=== PATIENT | male | born 1995 | race Caucasian/White ===

== ENCOUNTER 2016-05-26 07:31 | Emergency (ER) | payer BC, OTHER ==
[~2016-05-26] VITALS: Ht 185.4 cm; Wt 108.2 kg
[2016-05-26 07:37] VITALS: TEMP 36.7; Ht 185.4 cm; Wt 108.2 kg
[2016-05-26] MEDS ORDERED: KETOROLAC TROMETHAMINE 60 MG/2 ML VIAL IM STA (08:04)
--- NOTE | 2016-05-26 08:49 | EMERGENCY ROOM VISIT NOTE ---
History Report prepared by Bony: Iliana Gibbs Under the Supervision of: Dr. Johnny Travis D.O. First contact with patient: 07:39 Chief Complaint: TESTICULAR PAIN Stated Complaint: LEFT TESTICULAR PAIN Nursing Triage Summary: Triage Note: Pt reports left testicular pain x 2 days. pt denies any swelling and denies any injury. History of Present Illness The patient is a 20 year old male who presents to the Emergency Room with complaints of persistent left testicular pain starting 2 days ago. The pain started suddenly in the night. He was roused from his sleep from the pain. He has never experienced this pain before. The pain worsens when walking. He rates his discomfort as a 3/10 at rest and a 5/10 when walking. The pain improves with testicle elevation. He had some nausea on the first day when the symptoms started. He denies any swelling, penile discharge, headache, fever, vomiting, abdominal pain, or urinary symptoms. He is sexually active with 1 partner. He denies having sex the night before the pain started. He denies any trauma or injury. He reports that there was a cyst in his testicle 3 years ago. It has never caused him any pain. He denies any history of STDs. He is not on any medications. He denies any prior surgeries. No trauma. Source of History: patient Onset: 2 days ago Position: other (left testicle) Symptom Intensity: 3/10 at rest Timing: other (persistent) Modifying Factors (Worsening): other (walking) Modifying Factors (Relieving): other (testicle elevation) Associated Symptoms: + nausea, No abdominal pain, No fevers, No headache, No urinary symptoms, No vomiting Note: Pt denies swelling, penile discharge. Review of Systems See HPI for pertinent positives & negatives. A total of 10 systems reviewed and were otherwise negative. Past Medical & Surgical Medical Problems: (1) Depressive Disorder Nec Surgical Problems: (1) No significant past surgical history Family History FH: cancer Hypertension Social History Smoking Status: Current Some Day Smoker Alcohol Use: occasionally Drug Use: marijuana Marital Status: in relationship Housing Status: lives with significant other Occupation Status: employed Current/Historical Medications Scheduled Doxycycline Monohydrate (Monodox), 100 MG PO BID Allergies Coded Allergies: No Known Allergies (Unverified , 05/26/16) Physical Exam Vital Signs Date Time Temp Pulse Resp B/P Pulse Ox O2 Delivery O2 Flow Rate FiO2 4/11/17 09:21 55 16 123/73 98 Room Air 05/26/16 07:37 36.7 68 18 126/73 99 Room Air Physical Exam GENERAL: sitting up in bed, alert, well appearing, well nourished, no distress, non-toxic EYE EXAM: normal conjunctiva OROPHARYNX: no exudate, no erythema, lips, buccal mucosa, and tongue normal and mucous membranes are moist NECK: supple, no nuchal rigidity, no adenopathy, non-tender LUNGS: Clear to auscultation. Normal chest wall mechanics HEART: no murmurs, S1 normal and S2 normal ABDOMEN: abdomen soft, non-tender, normo-active bowel sounds, no masses, no rebound or guarding. BACK: Back is symmetrical on inspection and there is no deformity, no midline tenderness, no CVA tenderness. : Normal external genitalia, no penile discharge, no appreciable hernia, cremasteric reflex intact, tenderness to the left testicle on the superior posterior aspect. SKIN: no rashes and no bruising UPPER EXTREMITIES: upper extremities are grossly normal. LOWER EXTREMITIES: No pitting edema. NEURO EXAM: Normal sensorium, cranial nerves II-XII grossly intact, normal speech, no gross weakness of arms, no gross weakness of legs. Medical Decision & Procedures ER Provider Diagnostic Interpretation: Radiology results as stated below per my review and the radiologist's interpretation: ULTRASOUND TESTES AND SCROTUM CLINICAL HISTORY: Left testicular pain. COMPARISON STUDY: Scrotal ultrasound dated 11/24/2012. TECHNIQUE: Real-time, grayscale, and color Doppler sonography of the testes and scrotum is performed. Images are reviewed in the transverse and longitudinal planes. FINDINGS: The testes are normal in size and homogeneous in echotexture. The right testis measures 5.7 x 3.2 x 3.9 cm and the left testis measures 5.3 x 3.1 x 3.5 cm. No intratesticular mass is seen. Testicular blood flow is normal and symmetric. Normal Doppler waveforms are identified in both testes. The epididymal heads are normal in appearance. The right epididymal head measures 1.1 cm in length and the left epididymal head measures 1.1 cm in length. No varicocele or hydrocele is seen. The small left-sided tunica cyst seen on 11/24/2012 is no longer apparent. IMPRESSION: Unremarkable sonographic assessment of the testes and scrotum. Electronically signed by: Steve Watson M.D. 05/26/2016 8:59 AM Dictated Date/Time: 05/26/2016 8:57 AM Laboratory Results Test 05/26/16 08:30 Urine Color YELLOW Urine Appearance CLEAR (CLEAR) Urine pH 6.5 (4.5-7.5) Urine Specific [place] 1.024 (1.000-1.030) Urine Protein NEG (NEG) Urine Glucose (UA) NEG (NEG) Urine Ketones NEG (NEG) Urine Occult Blood NEG (NEG) Urine Nitrite NEG (NEG) Urine Bilirubin NEG (NEG) Urine Urobilinogen NEG (NEG) Urine Leukocyte Esterase NEG (NEG) Urine WBC (Auto) 0 /hpf (0-5) Urine RBC (Auto) 0-4 /hpf (0-4) Urine Hyaline Casts (Auto) 0 /lpf (0-5) Urine Epithelial Cells (Auto) 0-5 /lpf (0-5) Urine Bacteria (Auto) NEG (NEG) Laboratory results per my review. Medications Administered Medications (Trade) Dose Ordered Sig/Az Route Start Time Stop Time Status Last Admin Dose Admin Ceftriaxone Sodium (Rocephin Im) 250 mg NOW ONCE IM 05/26/16 09:30 05/26/16 09:31 DC 05/26/16 09:32 250 MG Doxycycline Hyclate (Vibramycin Cap) 100 mg NOW STAT PO 05/26/16 09:16 05/26/16 09:19 DC 05/26/16 09:31 100 MG ED Course ED COURSE: Vital signs were reviewed and showed normal vitals. The patients medical record was reviewed The above diagnostic studies were performed and reviewed. ED treatments and interventions as stated above. 0803: The patient was evaluated in room A12B. A complete history and physical examination was performed. 0916: Vibramycin Cap 100 mg PO. 0925: Upon reevaluation, the patient is resting comfortably.I discussed my findings with the patient and he understands and agrees with the treatment plan. Based on the patients age, coexisting illnesses, exam and lab findings the decision to treat as an outpatient was made. The patient remained stable while under my care. The patient appeared well at the time of discharge. 0930: Rocephin Im 250 mg IM. Medical Decision Differential diagnosis: Etiologies such as torsion, mass, infection, hernia, hydrocele, epididymitis, trauma, intra-abdominal process, as well as others were entertained. Patient is a 20-year-old male who presents the ER for left testicular pain which has been present for the past 2 days. He notes that it is worse on the superior aspect of the testicle. He denies any fevers. Pain is improved with elevation of the testicle. On exam he is acutely tender in the posterior superior aspect of the testicle suggesting epididymitis. There is no signs of torsion and the cremasterics reflex is intact bilaterally. Testicular ultrasound was performed and was unremarkable. UA was negative. Based on his exam he was treated for epididymitis with doxycycline and Rocephin. He is instructed not to have any kind of sexual intercourse for the next 2 weeks. Discussed with Pt concerning signs and symptoms to watch out for. Pt was instructed to follow up with their PCP and discussed with the patient their option to return to the ED at anytime for persistent or worsening symptoms. The appropriate anticipatory guidance and out-patient management, including indications for return to the emergency department, were explained at length to the patient and understood. Impression Primary Impression: Epididymitis Scribe Attestation The scribe's documentation has been prepared under my direction and personally reviewed by me in its entirety. I confirm that the note above accurately reflects all work, treatment, procedures, and medical decision making performed by me. Departure Information Dispostion Home / Self-Care Prescriptions Doxycycline Monohydrate (Monodox) 100 Mg Cap 100 MG PO BID for 10 Days, #20 CAP Prov: Dank Maurer .MD 05/26/16 Referrals No Doctor, Assigned (PCP) Forms HOME CARE DOCUMENTATION FORM, IMPORTANT VISIT INFORMATION, WORK / SCHOOL INSTRUCTIONS Patient Instructions ED Epididymitis, My [facility] Additional Instructions Please follow up with your primary care doctor with in the next 24 hours. Any worsening of your symptoms, please return to the ED immediately. This includes fevers greater than 100.4, worsening pain, swelling of your testicle, passing out, unable to urinate, or any other concerning signs or symptoms from your standpoint. Please take the antibiotics as prescribed. Please do not drink alcohol in combination with this medication as it can upset your stomach. Please try to eat prior to taking this medication. Please refrain from any kind of sexual intercourse for the next 2 weeks.
[2016-05-26 08:57] LABS: URINE APPEARANCE CLEAR (CLEAR); URINE BILIRUBIN NEG (NEG); URINE COLOR YELLOW; URINE EPITHELIAL CELL AUTO 0-5 /lpf (0-5); URINE NITRITE NEG (NEG); URINE PH 6.5 (4.5-7.5); URINE SPECIFIC GRAVITY 1.024 (1.000-1.030); UROBILINOGEN NEG (NEG); ZZUR CULT IF INDIC CLEAN CATCH NO
[2016-05-26 08:58] LABS: MANUAL MICROSCOPIC REQUIRED? NO; REVIEW REQ? NO
--- NOTE | 2016-05-26 09:01 | DIAGNOSTIC IMAGING REPORT ---
ULTRASOUND TESTES AND SCROTUM CLINICAL HISTORY: Left testicular pain. COMPARISON STUDY: Scrotal ultrasound dated 11/24/2012. TECHNIQUE: Real-time, grayscale, and color Doppler sonography of the testes and scrotum is performed. Images are reviewed in the transverse and longitudinal planes. FINDINGS: The testes are normal in size and homogeneous in echotexture. The right testis measures 5.7 x 3.2 x 3.9 cm and the left testis measures 5.3 x 3.1 x 3.5 cm. No intratesticular mass is seen. Testicular blood flow is normal and symmetric. Normal Doppler waveforms are identified in both testes. The epididymal heads are normal in appearance. The right epididymal head measures 1.1 cm in length and the left epididymal head measures 1.1 cm in length. No varicocele or hydrocele is seen. The small left-sided tunica cyst seen on 11/24/2012 is no longer apparent. IMPRESSION: Unremarkable sonographic assessment of the testes and scrotum. Electronically signed by: Steve Watson M.D. 05/26/2016 8:59 AM Dictated Date/Time: 05/26/2016 8:57 AM
--- NOTE | 2016-05-26 09:09 | EMERGENCY ROOM VISIT NOTE ---
History First contact with patient: 07:39 Chief Complaint: TESTICULAR PAIN Stated Complaint: LEFT TESTICULAR PAIN Nursing Triage Summary: Triage Note: Pt reports left testicular pain x 2 days. pt denies any swelling and denies any injury. History of Present Illness The patient is a 20 year old male who presents to the Emergency Room with complaints of unilateral Left sided testicular pain. 2 days prior to arrival patient reports sudden onset, constant left testicular pain radiating to the Left groin. Pain is worse with walking/standing. 3/10 intensity when sitting , 5/10 with walking, . He also reports hx of nausea ( now resolved. He denies associated injury. He denies bruising, swelling. No fevers/chills, penile discharge, urinary urgency, dysuria, frequency, . Patient also reports hx of Left testicular cyst diagnosed 11/2012. Patient had noticed a non-painful testicular lump before it was diagnosed. Review of Systems See HPI for pertinent positives & negatives. A total of 10 systems reviewed and were otherwise negative. Past Medical/Surgical History Medical Problems: (1) Depressive Disorder Nec Surgical Problems: (1) No significant past surgical history Family History FH: cancer Hypertension Social History Smoking Status: Current Some Day Smoker Alcohol Use: occasionally Drug Use: marijuana Housing Status: lives with friends Occupation Status: unemployed Current/Historical Medications Scheduled Doxycycline Monohydrate (Monodox), 100 MG PO BID Allergies Coded Allergies: No Known Allergies (Unverified , 05/26/16) Physical Exam Vital Signs Date Time Temp Pulse Resp B/P Pulse Ox O2 Delivery O2 Flow Rate FiO2 05/26/16 09:21 55 16 123/73 98 Room Air 05/26/16 07:37 36.7 68 18 126/73 99 Room Air Physical Exam GENERAL: alert, well appearing, well nourished, no distress, non-toxic EYE EXAM: normal conjunctiva, PERRL and EOM's grossly intact OROPHARYNX: no exudate, no erythema, lips, buccal mucosa, and tongue normal and mucous membranes are moist NECK: supple, no nuchal rigidity, no adenopathy, non-tender LUNGS: Clear to auscultation. Normal chest wall mechanics HEART: no murmurs, S1 normal and S2 normal ABDOMEN: abdomen soft, non-tender, normo-active bowel sounds, no masses, no rebound or guarding. BACK: Back is symmetrical on inspection and there is no deformity, no midline tenderness, no CVA tenderness. SKIN: no rashes and no bruising UPPER EXTREMITIES: upper extremities are grossly normal. LOWER EXTREMITIES: No pitting edema. Testes: Left Testicle: tender at superior posterior aspect , no edema, no hematoma, no hernia present. NEURO EXAM: Normal sensorium, cranial nerves II-XII grossly intact, normal speech, no gross weakness of arms, no gross weakness of legs. Gross sensation intact. Medical Decision & Procedures ER Provider Diagnostic Interpretation: ULTRASOUND TESTES AND SCROTUM CLINICAL HISTORY: Left testicular pain. COMPARISON STUDY: Scrotal ultrasound dated 11/24/2012. TECHNIQUE: Real-time, grayscale, and color Doppler sonography of the testes and scrotum is performed. Images are reviewed in the transverse and longitudinal planes. FINDINGS: The testes are normal in size and homogeneous in echotexture. The right testis measures 5.7 x 3.2 x 3.9 cm and the left testis measures 5.3 x 3.1 x 3.5 cm. No intratesticular mass is seen. Testicular blood flow is normal and symmetric. Normal Doppler waveforms are identified in both testes. The epididymal heads are normal in appearance. The right epididymal head measures 1.1 cm in length and the left epididymal head measures 1.1 cm in length. No varicocele or hydrocele is seen. The small left-sided tunica cyst seen on 11/24/2012 is no longer apparent. IMPRESSION: Unremarkable sonographic assessment of the testes and scrotum. Laboratory Results Test 05/26/16 08:30 Urine Color YELLOW Urine Appearance CLEAR (CLEAR) Urine pH 6.5 (4.5-7.5) Urine Specific [place] 1.024 (1.000-1.030) Urine Protein NEG (NEG) Urine Glucose (UA) NEG (NEG) Urine Ketones NEG (NEG) Urine Occult Blood NEG (NEG) Urine Nitrite NEG (NEG) Urine Bilirubin NEG (NEG) Urine Urobilinogen NEG (NEG) Urine Leukocyte Esterase NEG (NEG) Urine WBC (Auto) 0 /hpf (0-5) Urine RBC (Auto) 0-4 /hpf (0-4) Urine Hyaline Casts (Auto) 0 /lpf (0-5) Urine Epithelial Cells (Auto) 0-5 /lpf (0-5) Urine Bacteria (Auto) NEG (NEG) Medications Administered Medications (Trade) Dose Ordered Sig/Az Route Start Time Stop Time Status Last Admin Dose Admin Ceftriaxone Sodium (Rocephin Im) 250 mg NOW ONCE IM 05/26/16 09:30 05/26/16 09:31 DC 05/26/16 09:32 250 MG Doxycycline Hyclate (Vibramycin Cap) 100 mg NOW STAT PO 05/26/16 09:16 05/26/16 09:19 DC 05/26/16 09:31 100 MG Medical Decision 20 yo M p/w acute Left Testicular pain x 2 days ddx: epididymitis, vs. torsion vs orchitis vs, vasculitis were considered Testicular U/S: unremarkable Urinalysis: unremarkable. Patient's presentation is most likely due to Epididymitis evidenced by exam findings and normal testicular u/s effectively ruling out Torsion as a cause. Lack of swelling and signs of infection make orchitis unlikely. Patient has no other signs of a vasculitis. -Patient refused IM Toradol - Given PO Doxycycline 100 mg - Given IM Ceftriaxone 250 mg I discussed the findings and the treatment plan with the patient. He verbalizes agreement and understanding. He was discharged home with 10 day course of Doxycycline. Impression Primary Impression: Left epididymitis Additional Impression: Left testicular pain Departure Information Dispostion Home / Self-Care Condition GOOD Prescriptions Doxycycline Monohydrate (Monodox) 100 Mg Cap 100 MG PO BID for 10 Days, #20 CAP Prov: Dank Maurer MD 05/26/16 Referrals No Doctor, Assigned (PCP) Patient Instructions My [facility] Resident Tracking Resident Involvement: Resident Care Provided Care Provided: Adult ED Problem Qualifiers
[2016-05-26] MEDS ORDERED: DOXYCYCLINE HYCLATE 100 MG CAP PO STA (09:16)
[2016-05-26 09:21] VITALS: BP 123/73; PULSE 55; O2SAT 98
[2016-05-26] MEDS ORDERED: DOXY100C76 PO (09:28)
[2016-05-26] MEDS ORDERED: CEFTRIAXONE SOD 350MG/ML 1 GM VIAL IM ONE (09:30)
== END 2016-05-26 09:39 | disposition home or self-care (01) ==
LOC: C.EDB 07:32 → C.EDA 09:39
DX: N45.1 Epididymitis (principal); Z82.49 Family history of ischemic heart disease and other diseases of the circulatory system; F17.200 Nicotine dependence, unspecified, uncomplicated; F12.90 Cannabis use, unspecified, uncomplicated

== ENCOUNTER 2016-08-26 13:56 | Emergency (ER) | payer BC ==
[~2016-08-26] VITALS: Ht 185.4 cm; Wt 102.5 kg
[2016-08-26 14:02] VITALS: TEMP 36.8; Ht 185.4 cm; Wt 102.5 kg
[2016-08-26] MEDS ORDERED: SODIUM CHLORIDE 0.9% 1000ML 1,000 ML IV STA ×2 (15:18)
[2016-08-26] MEDS ORDERED: KETOROLAC TROMETHAMINE 30 MG/ML VIAL IV STA (15:18)
[2016-08-26 15:38] LABS: BASO % 0.3 %; BASO ABS # 0.02 K/uL (0-0.2); COMPLETE YES; EOS % 3.3 %; HEMATOCRIT 46.3 % (42-52); IG% 0.4 %; LYMPH ABS # 2.03 K/uL (1.2-3.4); MEAN CELL VOLUME 87.7 fL (80-100); MEAN CORPUSCULAR HEMOGLOBIN 28.8 pg (25-34); MEAN CORPUSCULAR HGB CONC 32.8 g/dl (32-36); MEAN PLATELET VOLUME 10.7 fL (7.4-10.4); MONO % 13.7 %; NEUT % 56.3 %; PLATELET COUNT 201 K/uL (130-400); RED BLOOD COUNT 5.28 M/uL (4.7-6.1)
[2016-08-26 15:48] LABS: POINT OF CARE TROPONIN I < 0.030 ng/ml (0-0.045)
[2016-08-26 15:49] LABS: BUN/CREATININE RATIO 18.6 (10-20); CALCIUM 8.8 mg/dl (8.5-10.1); CREATININE 0.84 mg/dl (0.60-1.40)
[2016-08-26 15:51] LABS: ALB/GLOB RATIO 1.4 (0.9-2)
[2016-08-26 15:57] LABS: PARTIAL THROMBOPLASTIN RATIO 1.2; PROTHROMBIN TIME (PATIENT) 10.9 SECONDS (9.0-12.0)
--- NOTE | 2016-08-26 15:59 | DIAGNOSTIC IMAGING REPORT ---
CHEST 2 VIEWS ROUTINE CLINICAL HISTORY: RIGHT CHEST PAIN X 2 DAYS COMPARISON STUDY: No previous studies for comparison. FINDINGS: Lung volumes are normal. There is no pneumothorax or pleural effusion. There is no consolidation to suggest pneumonia. Cardiomediastinal silhouette is normal. IMPRESSION: No acute cardiopulmonary findings. Electronically signed by: David Barbour M.D. 08/26/2016 3:58 PM Dictated Date/Time: 08/26/2016 3:57 PM
[2016-08-26 16:13] LABS: CKMB/CK RATIO 0.5 (0-3.0)
[2016-08-26 17:10] LABS: URINE APPEARANCE CLEAR (CLEAR); URINE BILIRUBIN NEG (NEG); URINE COLOR YELLOW; URINE NITRITE NEG (NEG); URINE SPECIFIC GRAVITY 1.022 (1.000-1.030); UROBILINOGEN NEG (NEG)
[2016-08-26 17:13] LABS: MANUAL MICROSCOPIC REQUIRED? NO; REVIEW REQ? NO
--- NOTE | 2016-08-26 17:38 | DIAGNOSTIC IMAGING REPORT ---
ABDOMINAL ULTRASOUND, RIGHT UPPER QUADRANT HISTORY: Right upper quadrant abdominal pain. COMPARISON: None. FINDINGS: The liver is sonographically normal. The common bile duct is partially obscured but likely normal in caliber. There may be mild intrahepatic biliary ductal dilatation. This could be artifactual. The pancreas is obscured by overlying bowel gas. There is no right hydronephrosis. There are no gallstones. There is no gallbladder wall thickening. IMPRESSION: 1. No gallstones or gallbladder wall thickening. 2. Possible mild intrahepatic biliary ductal dilatation. This is probably artifactual although could be correlated with obstructive liver function tests. 3. Obscured pancreas. Electronically signed by: David Barbour M.D. 08/26/2016 5:37 PM Dictated Date/Time: 08/26/2016 5:34 PM
[2016-08-26 17:43] LABS: BENZODIAZEPINE, URINE NEG (NEG); COCAINE,URINE NEG (NEG); PHENCYCLIDINE, URINE NEG (NEG)
--- NOTE | 2016-08-26 17:58 | EMERGENCY ROOM VISIT NOTE ---
History First contact with patient: 14:51 Chief Complaint: CHEST PAIN Stated Complaint: PAIN IN RIGHT SIDE OF CHEST Nursing Triage Summary: Pt c/o right side of his chest, sharp pain, happened 2 months ago, went away after a month, 2 days ago after a concert the pain is back. Pain is constant, but when he coughs, sneezes, or bends down the pain increases. SOB with coughing. History of Present Illness Patient is an otherwise healthy 20-year-old white male who presents emergency Department accompanied by his mother for evaluation of right-sided chest pain 2 days. Patient states that the pain started while he was running at a concert 2 days ago. He describes the abrupt onset of a sharp, right lower anterior rib pain. He describes it as a stabbing sensation. He states that the pain is constant and dull, rated a 4/10, but increases when he sneezes, coughs or bends over, and becomes much more sharp. He does also note that there is an area that he can palpate on the front of his ribs/abdomen, that makes the pain wraps around to his back. He has essentially did nothing for his pain. He denies any cold or upper respiratory symptoms, cough or sputum production. He denies any direct trauma to the area, no falls, unusual activity or heavy lifting. He states that he has to catch his breath when the pain becomes severe, and he was a little bit nauseous this morning with the increased pain. He denies any palpitations. He denies any calf or leg pain or swelling. He drove to and from [place] for vacation and returned 08/13. He was also in [place] for the concert 2 days ago. He denies any personal or family history of DVT or PE. He does report an episode of symptoms similar to this about 2 months ago, he states that pain started after he was coughing, and it lasted him for about a month. He did not seek medical attention at that time. He does not smoke. He is not taking any medications presently. There is a remote family history of heart disease and early MT. Review of Systems Review of systems as per HPI. All other systems reviewed were negative. 10 systems reviewed. Past Medical/Surgical History Medical Problems: (1) Depressive Disorder Nec (2) Epididymitis (3) Laceration (4) Left epididymitis (5) Left testicular pain (6) Left testicular pain (7) Superficial punctate keratitis Surgical Problems: (1) No significant past surgical history Electronic medical records are reviewed and summarized as above/below. See Problem List. Family History FH: cancer Hypertension Social History Smoking Status: Former Smoker Alcohol Use: occasionally Drug Use: marijuana Marital Status: in relationship Housing Status: lives with significant other Occupation Status: employed Current/Historical Medications No Active Prescriptions or Reported Meds Allergies Coded Allergies: No Known Allergies (Unverified , 08/26/16) Physical Exam Vital Signs Date Time Temp Pulse Resp B/P (MAP) Pulse Ox O2 Delivery O2 Flow Rate FiO2 08/26/16 18:17 90 18 124/74 99 08/26/16 16:09 136/84 08/26/16 15:26 64 17 08/26/16 14:56 54 14 08/26/16 14:37 81 08/26/16 14:33 62 18 134/84 100 Room Air 08/26/16 14:33 134/84 08/26/16 14:06 98 Room Air 08/26/16 14:02 36.8 72 18 126/87 98 Room Air Physical Exam CONSTITUTIONAL: Patient is a well-appearing 20-year-old white male who is awake and alert and in no acute distress. EYES: Pupils equal, round, reactive to light and accommodation. EOMs intact without nystagmus. Sclera are anicteric. ENT: Tympanic membranes intact, with normal landmarks. External canals are clear. Oral and nasopharynx are clear. Mucous membranes are moist, no lesions , tongue and gums appear normal. NECK: No bruits auscultated. Supple without lymphadenopathy. No thyromegaly. No meningeal signs. Full active range of motion without discomfort. CARDIOVASCULAR: Regular rate and rhythm, with normal S1 and S2, no murmur or gallop or rub is heard. No carotid bruits auscultated. No JVD. Peripheral pulses easy to palpable. RESPIRATORY: Breath sounds equal and clear to auscultation without wheezes, rales, or rhonchi heard. Full and equal chest expansion without accessory muscle use or retractions. GI: Bowel sounds are present. Abdomen is soft nondistended, slightly tender in the right upper quadrant off of the costal margin. No organomegaly. No pulsatile masses. No guarding or rebound. MUSCULOSKELETAL: Full range of motion of extremities x 4 with good strength. No cyanosis, edema, joint tenderness or swelling. No deformity. INTEGUMENTARY: No lesions or rash, normal skin turgor. NEUROLOGICAL: Alert, oriented, and cooperative. Cranial nerves, sensation and strength grossly intact. Pupils round, equal, and react to light, EOMs are full. LYMPH: No lymphadenopathy. Medical Decision & Procedures ER Provider Diagnostic Interpretation: CHEST 2 VIEWS ROUTINE CLINICAL HISTORY: RIGHT CHEST PAIN X 2 DAYS COMPARISON STUDY: No previous studies for comparison. FINDINGS: Lung volumes are normal. There is no pneumothorax or pleural effusion. There is no consolidation to suggest pneumonia. Cardiomediastinal silhouette is normal. IMPRESSION: No acute cardiopulmonary findings. ABDOMINAL ULTRASOUND, RIGHT UPPER QUADRANT HISTORY: Right upper quadrant abdominal pain. COMPARISON: None. FINDINGS: The liver is sonographically normal. The common bile duct is partially obscured but likely normal in caliber. There may be mild intrahepatic biliary ductal dilatation. This could be artifactual. The pancreas is obscured by overlying bowel gas. There is no right hydronephrosis. There are no gallstones. There is no gallbladder wall thickening. IMPRESSION: 1. No gallstones or gallbladder wall thickening. 2. Possible mild intrahepatic biliary ductal dilatation. This is probably artifactual although could be correlated with obstructive liver function tests. 3. Obscured pancreas. Laboratory Results 08/26/16 14:40 Red Blood Count 5.28, Mean Corpuscular Volume 87.7, Mean Corpuscular Hemoglobin 28.8, Mean Corpuscular Hemoglobin Concent 32.8, Mean Platelet Volume 10.7, Neutrophils (%) (Auto) 56.3, Lymphocytes (%) (Auto) 26.0, Monocytes (%) (Auto) 13.7, Eosinophils (%) (Auto) 3.3, Basophils (%) (Auto) 0.3, Neutrophils # (Auto ) 4.39, Lymphocytes # (Auto) 2.03, Monocytes # (Auto) 1.07, Eosinophils # (Auto ) 0.26, Basophils # (Auto) 0.02 08/26/16 14:40 Test 08/26/16 00:00 08/26/16 14:40 08/26/16 15:31 Urine Color YELLOW Urine Appearance CLEAR (CLEAR) Urine pH 7.0 (4.5-7.5) Urine Specific [place] 1.022 (1.000-1.030) Urine Protein NEG (NEG) Urine Glucose (UA) NEG (NEG) Urine Ketones NEG (NEG) Urine Occult Blood NEG (NEG) Urine Nitrite NEG (NEG) Urine Bilirubin NEG (NEG) Urine Urobilinogen NEG (NEG) Urine Leukocyte Esterase NEG (NEG) Urine Opiates Screen NEG (NEG) Urine Methadone, Qualitative NEG (NEG) Urine Barbiturates NEG (NEG) Urine Phencyclidine (PCP) Level NEG (NEG) Ur Amphetamine/Methamphetamine NEG (NEG) MDMA (Ecstasy) Screen NEG (NEG) Urine Benzodiazepines Screen NEG (NEG) Urine Cocaine Metabolite NEG (NEG) Urine Marijuana (THC) POS (NEG) White Blood Count 7.80 K/uL (4.8-10.8) Red Blood Count 5.28 M/uL (4.7-6.1) Hemoglobin 15.2 g/dL (14.0-18.0) Hematocrit 46.3 % (42-52) Mean Corpuscular Volume 87.7 fL (80-100) Mean Corpuscular Hemoglobin 28.8 pg (25-34) Mean Corpuscular Hemoglobin Concent 32.8 g/dl (32-36) Platelet Count 201 K/uL (130-400) Mean Platelet Volume 10.7 fL (7.4-10.4) Neutrophils (%) (Auto) 56.3 % Lymphocytes (%) (Auto) 26.0 % Monocytes (%) (Auto) 13.7 % Eosinophils (%) (Auto) 3.3 % Basophils (%) (Auto) 0.3 % Neutrophils # (Auto) 4.39 K/uL (1.4-6.5) Lymphocytes # (Auto) 2.03 K/uL (1.2-3.4) Monocytes # (Auto) 1.07 K/uL (0.11-0.59) Eosinophils # (Auto) 0.26 K/uL (0-0.5) Basophils # (Auto) 0.02 K/uL (0-0.2) RDW Standard Deviation 40.2 fL (36.4-46.3) RDW Coefficient of Variation 12.5 % (11.5-14.5) Immature Granulocyte % (Auto) 0.4 % Immature Granulocyte # (Auto) 0.03 K/uL (0.00-0.02) Erythrocyte Sedimentation Rate 3 mm/hr (0-14) Prothrombin Time 10.9 SECONDS (9.0-12.0) Prothromb Time International Ratio 1.0 (0.9-1.1) Activated Partial Thromboplast Time 29.9 SECONDS (21.0-31.0) Partial Thromboplastin Ratio 1.2 Anion Gap 8.0 mmol/L (3-11) Est Creatinine Clear Calc Drug Dose 173.5 ml/min Estimated GFR () 144.0 Estimated GFR (Non- 124.3 BUN/Creatinine Ratio 18.6 (10-20) Calcium Level 8.8 mg/dl (8.5-10.1) Total Bilirubin 0.6 mg/dl (0.2-1) Aspartate Amino Transf (AST/SGOT) 36 U/L (15-37) Alanine Aminotransferase (ALT/SGPT) 42 U/L (12-78) Alkaline Phosphatase 56 U/L (45-117) Total Creatine Kinase 1355 U/L (39-308) Creatine Kinase MB 6.6 ng/ml (0.5-3.6) Creatine Kinase MB Ratio 0.5 (0-3.0) Total Protein 7.3 gm/dl (6.4-8.2) Albumin 4.2 gm/dl (3.4-5.0) Globulin 3.1 gm/dl (2.5-4.0) Albumin/Globulin Ratio 1.4 (0.9-2) Lipase 110 U/L (73-393) Bedside D-Dimer 77 ng/mlFEU (0-450) Bedside Troponin I < 0.030 ng/ml (0-0.045) Medications Administered Medications (Trade) Dose Ordered Sig/Az Route Start Time Stop Time Status Last Admin Dose Admin Sodium Chloride 1,000 ml @ 999 mls/hr Q1H1M STAT IV 08/26/16 15:18 08/26/16 16:18 DC 08/26/16 15:31 999 MLS/HR Sodium Chloride 1,000 ml @ 250 mls/hr Q4H STAT IV 08/26/16 15:18 08/26/16 18:51 DC 08/26/16 15:33 250 MLS/HR Ketorolac Tromethamine (Toradol Inj) 30 mg NOW STAT IV 08/26/16 15:18 08/26/16 15:20 DC 08/26/16 15:32 30 MG ECG Indication: chest pain Rate (beats per minute): 72 Rhythm: sinus with SA Findings: no acute ischemic change, no ectopy Comparison ECG Date: no prior available ED Course The patient was seen and evaluated as above. His old records are reviewed. He presents the emergency department for evaluation of right-sided chest pain. On exam he has pain both over the right inferior ribs in addition to in the right upper quadrant slightly. IV lock was initiated. Patient was hydrated with normal saline solution and medicated with Toradol 30 mg IV for pain. Laboratory studies were collected. EKG was performed and was as noted above. CBC with differential, sedimentation rate, coags, [id number] troponin and d- dimer, CMP, CK/CK-MB, lipase, urinalysis and urine tox screen were all performed. His white count was not elevated. H&H is normal. Platelets and PT/ INR are within normal limits. His sedimentation rate is not elevated. Electrolytes, renal functions and liver functions are within normal limits. Lipase is not indicative of acute pancreatitis. Troponin is negative 1 with symptoms greater than 48 hours. [id number] d-dimer was well within normal range, therefore, further workup for PE was not pursued. He did have slight, nonspecific elevation of his total CK at 1355, that this was not felt to indicate rhabdomyolysis. He did receive IV fluid hydration in the emergency department. Urinalysis was negative, urine toxicology screen was positive for marijuana. Chest x-ray was unremarkable. Right upper quadrant ultrasound did not demonstrate any gallstones or gallbladder wall thickening. There was a question of some possible mild intrahepatic biliary ductal dilatation, however liver functions do not indicate an obstructive pathology. All laboratory and diagnostic imaging studies were reviewed with attending physician, and discussed with the patient and his mother at length. He does have some reproducible tenderness to palpation, and I suggest the possibility of a musculoskeletal etiology to his symptoms.Differential diagnosis includes acute myocardial infarction, acute coronary syndrome, myocarditis, pericarditis , pericardial effusions /tamponade, esophageal perforation, pulmonary embolism , pneumonia, pneumothorax, cardiomyopathy, congestive heart failure, anemia , COPD/asthma exacerbation, musculoskeletal, anxiety, costochondritis, among others. Conservative care measures were discussed with the patient. He was encouraged to rest and avoid any strenuous activity until his symptoms improve. He was advised to follow-up with his primary care provider for further care and management, particularly if his symptoms persist. The patient was discharged to home in good condition accompanied by his mother. He rated his pain a 2/10 at discharge. Medication reconciliation: I attest that I have personally reviewed the patient' s current medication list. Medical Decision See Emergency Department course. Impression Primary Impression: Right-sided chest pain Departure Information Prescriptions No Active Prescriptions or Reported Meds Referrals Joaquim Brunson M.D. ([facility]) (PCP) Patient Instructions My [facility] Additional Instructions Ibuprofen(Motrin, Advil) may be used for fever or pain. Use 600mg every six hours as needed. Take with food. Avoid using more than 2400mg in a 24 hour period. Do not use 2400mg per day for more than three consecutive days without physician direction. Prolonged inappropriate use can lead to stomach upset or ulcers. (AND/OR) Acetaminophen(Tylenol) may be used for fever or pain. Use 1000mg every six hours as needed. Avoid using more than 3000mg in a 24 hour period. Rest and drink plenty of fluids as tolerated. Continue current medications. Avoid strenuous activities and anything that worsens your pain. Resume normal activities once your symptoms resolve. Return to the ER immediately for worsening or persistent chest pain, abdominal pain, vomiting, fevers, chest pains, difficulty breathing, worsening of your condition, or as needed. Follow up with your primary physician in 2-3 days for a recheck of your current condition.
[2016-08-26 18:17] VITALS: BP 124/74; PULSE 90; O2SAT 99
== END 2016-08-26 18:28 | disposition home or self-care (01) ==
LOC: C.EDB 13:58 → C.EDA 18:28
DX: R07.9 Chest pain, unspecified (principal); Z87.891 Personal history of nicotine dependence; Z82.49 Family history of ischemic heart disease and other diseases of the circulatory system